=== PATIENT | female | born 1940 | race Caucasian/White ===

== ENCOUNTER 2019-12-06 16:47 | Emergency (ER) | payer MEDICARE, SELFPAY ==
--- NOTE | ~2019-12-06 | CT_ITS ---
EXAMINATION: CT brain wo con DATE: 12/06/2019 22:25 INDICATION: Dizziness TECHNIQUE: Computed tomography (CT) of the head was performed without intravenous contrast. Sagittal and coronal reconstructions were performed. The mA was adjusted according to patient size. Iterative reconstruction technique was employed. The dose-length product was 605.33 mGy-cm. COMPARISON: head CT dated 01/05/2018 FINDINGS: No acute intracranial hemorrhage, acute infarction or abnormal extra axial fluid collection. There is mild scattered white matter hypoattenuation consistent with chronic small vessel ischemic disease. S ymmetric prominence of the sulci consistent with mild age-appropriate diffuse cerebral volume loss. V entricles are normal and symmetric. No mass/mass effect. Changes of bilateral intraocular lens replac ement. Unchanged mucous retention cyst in the posterior most left ethmoid air cell. The orbits and ma stoid air cells are normal. Intracranial calcified cerebral atherosclerosis is noted. IMPRESSION: 1. No acute intracranial process. 2. Age-related changes including mild diffuse volume loss and mild scattered white matter hypoattenua tion consistent with chronic small vessel ischemic disease. Reviewed, dictated and finalized at location A. MATIC CLIPPER IMPRESSION: 1. No acute intracranial process. 2. Age-related changes including mild diffuse volume loss and mild scattered wh ite matter hypoattenuation consistent with chronic small vessel ischemic diseas e.
[2019-12-06 17:31] VITALS: BP 170/58; PULSE 67; RESP 18; TEMP 36.5; O2SAT 100
--- NOTE | 2019-12-06 20:00 | ED.DIZZY ---
HPI - Dizziness General Chief Complaint: Headache Stated Complaint: high blood pressure, headache, dizzy Time Seen by Provider: 12/06/19 19:43 Source: patient and RN notes reviewed Mode of arrival: ambulatory Limitations: no limitations History of Present Illness HPI Narrative: A 79 y/o female presents to the ED d/t constant, worsening, lightheadedness since yesterday. She states that she has been lightheaded and has had a pressure like SALTER since yesterday, so she took her BP and it was high. She reports that her symptoms continued today and that her systolic pressure was in the 170's, so she decided to come to the ED. She notes that her lightheadedness is aggravated when she turns her head. She also notes that she is on Losartan and Carvedilol and denies missing any dosages. She also denies any N/V/D, syncope, ABD pain, CP, SOB, and any other medical complaints at this time. MD elicited complaint: lightheadedness Onset (ago): day(s) (yesterday) Timing: constant (worsening) Description: lightheadedness Exacerbating factors: other (turning head) Relieving factors: nothing Associated symptoms: other (SALTER and HTN) Related Data Home Medications Medication Instructions Recorded Confirmed alprazolam 12/06/19 Allergies Allergy/AdvReac Type Severity Reaction Status Date / Time ciprofloxacin Allergy Unknown Rash Verified 12/06/19 20:12 dicyclomine Allergy Unknown Rash Verified 12/06/19 20:12 latex Allergy Unknown Rash Verified 12/06/19 20:12 Sulfa (Sulfonamide Allergy Unknown Rash Verified 12/06/19 20:12 Antibiotics) MULIPLE PROBLEMS WITH Allergy Unknown DIARRHEA Uncoded 12/06/19 20:12 ANTIBIOTICS Review of Systems Review of Systems: All systems reviewed & are unremarkable except as noted in HPI and below Constitutional: Constitutional: Denies chills, Denies fever(s) and Denies weakness Eyes: Eyes: Denies blurry vision ENT: Denies neck pain Cardiovascular: Cardiovascular: Denies chest pain, Reports lightheadedness, Denies dyspnea and Reports other (HTN) Respiratory: Respiratory: Denies cough and Denies dyspnea Gastrointestinal: Gastrointestinal: Denies abdominal pain, Denies diarrhea, Denies nausea and Denies vomiting Genitourinary: Genitourinary: Denies hematuria and Denies dysuria Musculoskeletal: Musculoskeletal: Denies back pain and Denies neck pain Neurologic: Denies syncope, Reports headache(s) (pressure) and Denies weakness [facility] Past Medical History Medical History (Updated 12/07/19 @ 00:00 by Andrez Salomon) Cervical vertebral closed fracture Cystocele H/O: HTN (hypertension) Hx of seizure disorder OA (osteoarthritis) Surgical History Surgical History (Updated 12/06/19 @ 20:31 by Jayson Villarreal) Surgical history unknown Social History Social History (Updated 12/06/19 @ 20:32 by Jayson Villarreal) Smoking status: Former smoker Gender identity (if verbalized by the patient): Female Comments PCP: Dr. Cat. Exam Const: General: no acute distress and well developed Orientation/consciousness: oriented to person, oriented to place, oriented to time and patient oriented x3 HENMT: Head: normocephalic Ears: external ears normal General nose exam: Normal external nose present Eyes: General: appearance normal, both eyes and all related structures Conjunctivae: conjunctivae normal Neck: Neck: normal visual inspection and full ROM Chest: Chest palpation & inspection: normal inspection of the chest and no tenderness Resp: Effort & Inspection: normal respiratory effort Auscultation: clear to auscultation bilaterally Cardio: Rate: regular rate Rhythm: regular rhythm GI: GI Palp: No abdominal tenderness and Yes Soft to palpation Skin: General skin exam: normal color and turgor normal Neuro: General: oriented to person, oriented to place, oriented to time and patient oriented x3 Cranial nerves: Yes CN's II-XII intact bilaterally Cognition (Neuro): normal cognition Speech: normal s
--- NOTE | 2019-12-06 20:01 | ECG_ITS ---
Measurements Intervals [place] Rate: 61 P: -6 KS: 203 QRS: 8 QRSD: 89 T: 30 QT: 376 QTc: 381 Interpretive Statements SINUS RHYTHM NORMAL ECG Electronically Signed On 12-07-2019 7:25:21 CHECKER CASHIER by Eh Mojica D.O.
[2019-12-06 20:03] VITALS: BP 159/77; PULSE 67; RESP 15; O2SAT 100
[2019-12-06 20:19] LABS: Basophils Absolute Auto 0.1 K/mm3 (0.0-0.1); Eosinophils Absolute Auto 0.2 K/mm3 (0-0.3); Eosinophils Percent Auto 3.1 % (0-4.4); Hematocrit 34.4 % (37.0-47.0); Hemoglobin 11.2 g/dL (12.0-15.0); Immature Granulocyte Absolute 0.02 K/mm3 (0.00-0.031); Immature Granulocyte Percent A 0.3 % (0-0.5); Lymphocytes Absolute Auto 1.69 K/mm3 (0.9-3.2); Lymphocytes Percent Auto 24.6 % (18.3-44.2); Mean Corpuscular HGB Conc 32.6 g/dl (32-36); Mean Corpuscular Hemoglobin 28.7 pg (26-34); Mean Corpuscular Volume 88.2 fl (80-100); Monocytes Absolute Auto 0.7 K/mm3 (0.1-0.6); Neutrophils Absolute Auto 4.2 K/mm3 (1.3-6.7); Platelet Count Result 440 k/mm3 (150-375); Red Cell Distribution Width 12.6 % (11.5-14.5); White Blood Count 6.9 K/mm3 (4.5-10.0)
[2019-12-06 20:31] LABS: Blood Urea Nitrogen 16 mg/dL (7-17); Calcium 9.5 mg/dL (8.4-10.2); Carbon Dioxide 25 mmol/L (22-30); Chloride 96 mmol/L (98-107); Estimated CRCL calculation 87 ml/min; Estimated Glomerular Filt Rate > 60; Glucose 106 mg/dL (65-105); Potassium 4.8 mmol/L (3.4-5.0); Sodium 134 mmol/L (137-145)
[2019-12-06 21:52] VITALS: BP 144/56; PULSE 65; RESP 12; O2SAT 100
[2019-12-06 23:20] VITALS: BP 172/61; PULSE 66; RESP 18; O2SAT 100
[2019-12-06] MEDS: AMLODIPINE BESYLATE 5 MG TABLET PO (23:20)
== END 2019-12-06 23:20 | disposition home or self-care (01) ==
PROVIDERS: Emergency Provider Emergency Medicine
DX: I10 Essential (primary) hypertension (principal); R42 Dizziness and giddiness; Z87.891 Personal history of nicotine dependence; G40.909 Epilepsy, unspecified, not intractable, without status epilepticus
CPT/HCPCS: 36415; 70450; 80048; 85025; 93005; 99284; A9270

== ENCOUNTER 2021-07-12 12:43 | Outpatient (CLI) | payer MEDICARE, SELFPAY ==
--- NOTE | ~2021-07-12 | DEXA_ITS ---
Bone Density Report Name: Oliva White Age: 81 Sex: Female Ethnicity: White Date of : 1940 Indication: postmenopausal; Referring Provider: Katerin Cat Study: Bone densitometry was performed. Exam Date: July 12, 2021 Accession number: [id number] Bone Density: Region BMD T-score Z-score Classification AP Spine (L1, L2, L3) 0.947 -0.6 1.9 Normal Femoral Neck (Left) 0.680 -1.5 0.7 Osteopenia Total Hip (Left) 0.793 -1.2 0.8 Osteopenia Total Hip Bilateral Avg 0.778 -1.4 0.7 Osteopenia Femoral Neck (Right) 0.627 -2.0 0.3 Osteopenia Total Hip (Right) 0.763 -1.5 0.5 Osteopenia World Health Organization criteria for BMD impression classify patients as: Normal (T-score at or above -1.0), Osteopenia (T-score between -1.0 and -2.5), or Osteoporosis (T-score at or below -2.5). 10-year Fracture Risk(1): Major Osteoporotic Fracture 14% Hip Fracture 3.8% Reported Risk Factors: [place] (), Neck BMD=0.627, BMI=33.3 (1) FRAX(R) Version 3.08. Fracture probability calculated for an untreated patient. Fracture probability may be lower if the patient has received treatment. Clinical Information Provided by Patient: Has used the following medications: Vitamin D Patient maximum height was 63 Menopause Age: 61 Drinks caffeinated beverages Onset of menses at age 16 Number of children 3 Impression: The patient has low bone mass, based on the Right Femoral Neck T-score. The patient has an estimated ten-year risk of hip fracture of 3.8% and an estimated ten-year risk of major fracture of 14%, based on the WHO FRAX algorithm. Discussion: BONE DENSITY IS LOW AT ONE OR MORE SKELETAL SITES. THE PATIENT'S BMD AND CLINICAL RISK FACTORS CONTRIBUTE TO THIS PATIENT'S INCREASED RISK OF FRACTURE. This patient's lowest T-score is low at one or more skeletal sites. It meets the World Health Organization's (WHO) criteria for ?low bone mass? (T-score between -1.0 and -2.5). The patient's 10-year risk of hip fracture as calculated by FRAX exceeds the threshold where pharmacological therapy is recommended by the National Osteoporosis Foundation (NOF). However, all treatment decisions require clinical judgment and consideration of individual patient factors, including patient preferences, comorbidities, previous drug use, risk factors not captured in the FRAX model (e.g., frailty, falls, vitamin D deficiency, increased bone turnover, interval significant decline in bone density) and possible under or overestimation of fracture risk by FRAX. The patient should follow a healthful lifestyle (good nutrition with adequate calcium and vitamin D, and appropriate weight-bearing exercise). Follow-Up: Consider a repeat BMD and Vertebral Fracture Assessment (VFA) exam in 2 years or sooner if medically necessary, to reassess this pat
== END 2021-07-12 12:44 | disposition home or self-care (01) ==
LOC: ANHIMG 12:46
DX: Z78.0 Asymptomatic menopausal state (principal); M85.89 Other specified disorders of bone density and structure, multiple sites
CPT/HCPCS: 77080

== ENCOUNTER → 2022-11-24 10:15 | Outpatient (CLI) | payer MEDICARE, SELFPAY ==
--- NOTE | ~2022-11-24 | US_ITS ---
Abdominal Sonogram: Real-time sonographic imaging of the abdomen was performed. Clinical History: Abnormal findings of blood Findings: The liver appears normal with no evidence of mass lesion or bile duct dilatation. Main por rosina vein demonstrates normal direction of flow. The spleen is normal in size without evidence of foca l lesion. The gallbladder is well distended, and appears normal with no evidence of gallstone or wal l thickening. The common bile duct measures 4 mm. The visualized pancreas, aorta, and IVC are unrema rkable. The right kidney measures 8.9 cm in length and the left kidney measures 7.8 cm. There is no hydronephrosis or renal calculus. Impression: Unremarkable abdominal ultrasound. Reviewed, dictated and finalized at location . TRUCK DRIVER Impression: Unremarkable abdominal ultrasound.
== END ==
PROVIDERS: PCP Internal Medicine Rheumatology; Visit Provider Internal Medicine Rheumatology
DX: R79.89 Other specified abnormal findings of blood chemistry (principal)
CPT/HCPCS: 76700

== ENCOUNTER 2023-08-14 16:31 | Outpatient (CLI) | payer MEDICARE, SELFPAY ==
--- NOTE | ~2023-08-14 | MR_ITS ---
EXAMINATION: MR brain/brain stem wo/w con DATE: 08/14/2023 17:50 INDICATION: Hearing loss. TECHNIQUE: Magnetic resonance imaging (MRI) of the brain and brainstem was performed without and with 20 mL MultiHance intravenous contrast. COMPARISON: Head CT 12/06/2019 FINDINGS: There are scattered areas of nonspecific increased T2-weighted signal intensity in the cere bral white matter, which is within normal limits for the patient's age. There is no intracranial hemo rrhage, acute infarction, or abnormal intracranial mass lesion. The ventricles are normal in size. Th ere is mild mucosal thickening in the paranasal sinuses. The internal auditory canals and inner ears and tympanic cavities are normal. There is a right mastoid effusion. There are likely changes of ocul ar lens replacement surgeries. IMPRESSION: 1. Normal aging brain. 2. Right mastoid effusion. Reviewed, dictated and finalized at location E.
== END 2023-08-14 16:32 | disposition home or self-care (01) ==
PROVIDERS: PCP Internal Medicine Rheumatology
DX: H74.8X1 Other specified disorders of right middle ear and mastoid (principal)
CPT/HCPCS: 70553; A9577

== ENCOUNTER 2025-01-01 15:56 | Outpatient (CLI) | payer MEDICARE, SELFPAY ==
--- NOTE | ~2025-01-01 | DEXA_ITS ---
Bone Density Report Name: MAK LUONG Age: 84 Sex: Female Ethnicity: White Date of : 1940 Indication: osteopenia; height loss; seizure disorder; hysterectomy; Referring Provider: JONATHAN, RICO Connor Study: Bone densitometry was performed. Exam Date: January 01, 2025 Accession number: [id number] Bone Density: Region BMD T-score Z-score Classification AP Spine(L1-L4) 0.974 -0.7 2.1 Normal Femoral Neck (Left) 0.718 -1.2 1.2 Osteopenia Total Hip (Left) 0.791 -1.2 1.0 Osteopenia Femoral Neck (Right) 0.695 -1.4 1.0 Osteopenia Total Hip (Right) 0.751 -1.6 0.6 Osteopenia Total Hip Mean 0.771 -1.4 0.8 Osteopenia World Health Organization criteria for BMD impression classify patients as: Normal (T-score at or above -1.0), Osteopenia (T-score between -1.0 and -2.5), or Osteoporosis (T-score at or below -2.5). 10-year Fracture Risk(1): Major Osteoporotic Fracture 12% Hip Fracture 3.0% Reported Risk Factors: [place] (), Neck BMD=0.695, BMI=33.3 (1) FRAX(R) Version 3.08. Fracture probability calculated for an untreated patient. Fracture probability may be lower if the patient has received treatment. Previous Exams: Region Exam Age BMD T-score BMD Change BMD Change Date g/cm2 vs Baseline vs Previous Total Hip(Left) 01/01/2025 84 0.791 -1.2 -0.002 (-0.3%) -0.002 (-0.3%) 07/12/2021 81 0.793 -1.2 Total Hip(Right) 01/01/2025 84 0.751 -1.6 -0.012 (-1.6%) -0.012 (-1.6%) 07/12/2021 81 0.763 -1.5 *Denotes significance at 95% confidence level, LSC for Total Hip = 0.027 g/cm2 # Denotes dissimilar scan types or analysis methods Clinical Information Provided by Patient: Has used the following medications: Vitamin D, Calcium Has the following medical conditions: Any Seizure Disorders, Hysterectomy Patient maximum height was 64.5 Menopause Age: 61 No regular weight bearing exercise Drinks caffeinated beverages Onset of menses at age 16 Number of children 3 Impression: The patient has low bone mass, based on the Right Total Hip T-score. The patient has an estimated ten-year risk of hip fracture of 3% and an estimated ten-year risk of major fracture of 12%, based on the WHO FRAX algorithm. No significant bone loss was observed. Discussion: BONE DENSITY IS LOW AT ONE OR MORE SKELETAL SITES. THE PATIENT'S BMD AND CLINICAL RISK FACTORS CONTRIBUTE TO THIS PATIENT'S INCREASED RISK OF FRACTURE. This patient's lowest T-score is low at one or more skeletal sites. It meets the World Health Organization's (WHO) criteria for ?low bone mass? (T-score between -1.0 and -2.5). The patient's 10-year risk of hip fracture as calculated by FRAX exceeds the threshold where pharmacological therapy is recommended by the National Osteoporosis Foundation (NOF). However, all treatment decisions require clinical judgment and consideration of individual patient factors, including patient preferences, comorbidities, previous drug use, risk factors not captured in the FRAX model (e.g., frailty, falls, vitamin D deficiency, increased bone turnover, interval significant decline in bone density) and possible under or overestimation of fracture risk by FRAX. The patient should follow a healthful lifestyle (good nutrition with adequate calcium and vitamin D, and appropriate weight-bearing exercise). Follow-Up: Consider a repeat BMD and Vertebral Fracture Assessment (VFA) exam in 2 years or sooner if medically necessary, to reassess this patient's status. Reported by: NAZIA on 01/01/2025 4:23:00 PM. Reviewed, dictated and finalized at location ABecky LEONG
--- OUTSIDE RECORDS SUMMARY | 2025-01-01 17:26 | XMS_ITS | Encounter Summary ---
Author Organization [facility] Healthcare Address [address] [place] [address] Care Team Providers Care Sweatband Maker Name Role Phone Katerin Cat MD Primary Care Provider [phone] Reason for Visit * Reason Onset Date Comments Scheduling Appointments 06/17/2024 Schedule patient for Imaging Lumbar/Sacral Medial Branch RFA Bilateral (05002) Encounter Details Date Type Department Care Team (Late st Contact Info) Description 06/17/2024 Telephone [facility] at [facility] [address] [address], [address] [place] [id number] Bashir Yusuf MD [address] [place] [address] Scheduling Appointments (Schedule patient for Imaging Lumbar/Sacral Medial Branch RFA Bilateral (26843) ) Social History Tobacco Use Types Packs/Day Years Used Date Smoking Tobacco: Never Smokeless Tobacco: Never Alcohol Use Standard Drinks/Week Comments Never 0 (1 standard drink = 0.6 oz pur e alcohol) AUDIT-C Answer Date Recorded Q1: How often do you have a drink containing alc ohol? 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 Author CCM Chronic Pain Care Plan Chronic Care Management No Viv Cardenas, RN Note: Problem: Chronic Pain Goals: 1. Minimize further functional decline 2. Maximize quality of life 3. Control pain Strategies: - Activity/exercise program recommendation - Conservative stepwise pain medicine strategy with multi-disciplinary approach - Recommend healthy lifestyle strategies and compensatory methods as needed Reduce the likelihood of falling Lifestyle No Woodrow benavides, Isabell Jaquez RN Note: Below are four things you can do to prevent falls: Begin an exercise program to improve your leg strength & balance Ask your doctor or pharmacist to review your medicines Get annual eye check-ups & update your eyeglasses Make your home safer by: Removing clutter & tripping hazards Putting railings on all stairs & adding grab bars in the bathroom Having good lighting, especially on stairs Contact your local community or [facility] for information on exercise, fall prevention programs, or options for improving home safety. documented as of this encounter Visit Diagnoses Not on filedocumented in this encounter Care Teams Sweatband Maker Relationship Specialty Start Date End Date Katerin Cat MD [address] [place] [address] [place] [address] PCP - General 05/26/17 documented as of this encounter
--- OUTSIDE RECORDS SUMMARY | 2025-01-01 17:26 | XMS_ITS | Encounter Summary ---
Author Organization [facility] Healthcare Address [address] [place] [address] Care Team Providers Care Hospice Educator Name Role Phone Katerin Cat MD Primary Care Provider [phone] Encounter Details Date Type Department Care Team (Late st Contact Info) Description 05/05/2020 Telephone [facility] at [facility] [address], [address] [place] [id number] Sophy Fuentes MD [address] [place], [place] [id number] Social History Tobacco Use Types Packs/Day Years Used Date Smoking Tobacco: Never Smokeless Tobacco: Never Alcohol Use Standard Drinks/Week Comments Never 0 (1 standard drink = 0.6 oz pur e alcohol) AUDIT-C Answer Date Recorded Frequency of Alcohol Consumption Never 11/25/2019 Average Number of Drinks Not on file 020 Frequency of Binge Drinking Not on file 10/31 Comments No Sex and Gender Information Value Date Recorded Sex Assigned at Not on file 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 [facility] [address] [facility] [address] PCP - General 05/26/17 documented as of this encounter
--- OUTSIDE RECORDS SUMMARY | 2025-01-01 17:26 | XMS_ITS | Encounter Summary ---
Author Organization [facility] Address [address] [place] [address] Care Team Providers Care Mechanical Artist Name Role Phone Unavailable Primary Care Provider Unavailabl e Encounter Details Date Type Department Care Team (Late st Contact Info) Description 07/14/2000 Outpatient Historical [facility] Katerin Cat MD Social History Tobacco Use Types Packs/Day Years Used Date Smoking Tobacco: Never Assessed Comments Unknown Sex and Gender Information Value Date Recorded Sex Assigned at Not on file Legal Sex Female 4:18 AM CLINICAL RESEARCH ADMINISTRATOR Gender Identity Not on file Sexual Orientation Not on file documented as of this encounter Plan of Treatment Not on file documented as of this encounter Visit Diagnoses Not on filedocumented in this encounter
--- OUTSIDE RECORDS SUMMARY | 2025-01-01 17:26 | XMS_ITS | Clinical Summary ---
Author Organization [facility] Address [address] [place] [address] Care Team Providers Care Senior Training Specialist Name Role Phone Katerin Cat MD Primary Care Provider [phone] Allergies Active Allergy Reactions Criticality Noted Date Comments Cefuroxime Swelling,Redness Medium Dicyclomine Unknown 06/16/2014 Pt does not remember Iodinated Contrast Media Flushing (skin) High 2020 Latex Rash Medium Nitrofurantoin Swelling,Redness Medium Medications carvedilol (COREG) 6.25 mg tablet Take 1 tablet (6.25 mg total) by mouth 2 (two) times a day 3 8 Active losartan (COZAAR) 100 mg tablet Take 1 tablet (100 mg total) by mouth every morning Active furosemide (LASIX) 20 mg tablet Take 2 tablets (40 mg total) by mouth every morning 3 8 Active PHENobarbital (LUMINAL) 32.4 mg tabletIndicatio ns:seizure disorder Take 1 tablet (32.4 mg total) by mouth nightly 4 8 Active potassium chloride ER (KLOR-CON) 10 mEq CR tablet Take 1 tablet/capsule (10 mEq total) by mouth nightly Active lancets misc Use every time you check your blood sugar 50 each 3 1 Active blood glucose strip-disp meter kit 1 kit 4 (four) times a day (with meals and nightly) 1 kit 1 Active blood-glucose meter kit 1 kit 4 (four) times a day (with meals and nightly) 1 each 1 Active amLODIPine (NORVASC) 5 mg tablet Take 1 tablet (5 mg total) by mouth daily after dinner 1 Active estradioL (Estrace) 0.01 % (0.1 mg/gram) vaginal creamIndication s:Vaginal atrophy Apply 1/4 applicator (1g) to the vagina twice weekly. 42.5 g 3 1 Active d-mannose powder Take 1,000 mg by mouth 2 (two) times a day Active cyanocobalamin (Vitamin B-12) 500 mcg tabletIndicatio ns:Prevention of Vitamin B12 Deficiency Take 1 tablet (500 mcg total) by mouth nightly Active acetaminophen (TYLENOL) 500 mg tablet Take 1 tablet (500 mg total) by mouth every 6 (six) hours as needed for pain Active calcium carbonate (TUMS) 500 mg calcium (200 mg of elemental calcium) chewable tablet Take 1 tablet/chew tab (500 mg total) by mouth as needed for indigestion or heartburn Active traMADoL (ULTRAM) 50 mg tablet Take 1 tablet (50 mg total) by mouth every 6 (six) hours as needed for pain 20 tablet 1 Active aspirin 81 mg chewable tablet Take 1 tablet (81 mg total) by mouth daily Active vitamins A,C,E-zinc-chelsie er 7,160-113-100 lega-lc-evde tablet,delayed release (DR/EC) Take by mouth Active multivitamin tabletIndicatio ns:Vitamin Deficiency Prevention Take 1 tablet by mouth Active ALPRAZolam (XANAX) 0.25 mg tablet Take 1 tablet (0.25 mg total) by mouth 3 (three) times a day 4 Active Active Problems Problem Noted Date Diagnosed Date Spondylosis of lumbar region without myelopathy or radiculopathy 07/27/2024 Sacroiliitis 05/30/2024 Vaginal atrophy 03/16/2021 Assessment & Plan (07/07/2021 11:19 AM CDT): - continue twice weekly VET Pelvic floor dysfunction in female 03/16/2021 Uterovaginal prolapse, incomplete 03/16/2021 Assessment & Plan (07/07/2021 11:18 AM CDT): - 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 Hernandez on 08/12; however, her grandson is going into the [employer] and his going away green party is 08/13. We discussed her recovery may or may not impact her ability to attend this. She will consider and call the office if she desires to d/w Dr. Hernandez further via telehealth or reschedule to a different date. Of note, she is scheduled for preop appt and UDS on 08/10. - she will return for pessary check in 3 months if surgery not done before then Incomplete emptying of bladder 03/16/2021 Assessment & Plan (08/18/2021 5:39 PM CDT): - Trevino catheter inserted today to allow for bladder rest. - she will return in approximately one week for void trial Prolapse of anterior vaginal wall 02/08/2018 Frequent urination 02/07/2018 Assessment & Plan (07/07/2021 11:11 AM CDT): - normal PVR today - A cathed urine culture is being sent today to rule out a UTI as a possible cause of her symptoms. Vaginal irritation 02/07/2018 Skin neoplasm 08/16/2017 Seborrheic keratosis 08/12/2016 Seborrheic keratosis, inflamed 12/14/2015 Knee pain 09/30/2015 Actinic keratosis 08/07/2015 Lentigo 08/07/2015 Closed fracture of second ce rvical vertebra without spinal cord injury 11/25/2014 Cervicalgia 11/07/2014 History of squamous cell carcinoma of skin 06/17 Sacroiliac joint pain 04/04/2014 Lumbago 03/15/2013 Low back pain 04/18/2012 Assessment & Plan (08/18/2021 5:38 PM CDT): - minimal relief with tramadol and ibuprofen - called pain management doctor and they have scheduled her an appointment - chart review following appointment reveals she has appt with them tomorrow morning. Encounters Date Type Department Care Team Description 12/10/2024 1:00 PM SOFT METALS HAND ENGRAVER Office Visit [facility] D[facility]atology [address] [facility] [address] [place] [address] Daljit Chavez MD Seborrheic keratosis (Primary Dx); History of nonmelanoma skin cancer; Multiple benign nevi; Lentigo from Last 3 Months Surgical History Surgery Date Site/Laterality Comments EPIDURAL INJECTION LUMBOSACRAL 10/16/2013 N/A EPIDURAL INJECTION LUMBOSACRAL 09/16/2016 N/A BASAL CELL CARCINOMA EXCISION LEG SURGERY BACK SURGERY ablatioin-stenosis IR INJECTION ARTHROGRAM SI J OINT BILATERAL WITH GUIDANCE 07/31/2018 Bilateral FLUORO GUIDED INJECTION SHOU LDER RIGHT 12/19/2018 Right IR INJECTION ARTHROGRAM SI J OINT BILATERAL WITH GUIDANCE 05/27/2019 Bilateral FL UPPER GI AIR CONTRAST W KUB 07/29/2019 Left FLUORO GUIDED ASPIRATION OR INJECTION LARGE JOINT BILATERAL 09/11/2019 Bilateral COLECTOMY PARTIAL / TOTAL ANTERIOR AND POSTERIOR VAGINAL REPAIR ENTEROCELE REPAIR HYSTERECTOMY 08/12/2021 HYSTERECTOMY BLADDER SUSPENSION ANTERIOR AND POSTERIOR VAGINAL REPAIR Medical History Medical History Date Comments Neck fracture (HCC) Anxiety Arthritis Cancer (HCC) basal cell leg a nd face Hypertension Seizures (HCC) Tail bone pain Incontinence Joint pain Diabetes (HCC) Motion sickness GERD (gastroesophageal reflux disease) Skin cancer Macular degeneration Obesity Chronic pain disorder Low back pain Family History Medical History Relation Name Comments BLOOD CANCER Father Cancer Father Hypertension Father Cancer Mother Other Mother Diabetes Son Anesthesia problems Neg Hx Relation Name Status Comments Father Mother Son Social History Tobacco Use Types Packs/Day Years Used Date Smoking Tobacco: Never Smokeless Tobacco: Never Tobacco Cessation:Counseling Given: Not Answered Alcohol Use Standard Drinks/Week Comments Never 0 (1 standard drink = 0.6 oz pur e alcohol) AUDIT-C Answer Date Recorded Q1: How often do you have a drink containing alcohol? Never 07/26/2024 Q2: How many drinks containi ng alcohol do you have on a typical day when you are drinking? Patient does not drink Q3: How often do you have si x or more drinks on one occasion? Never 07/26/2024 Comments No Sex and Gender Information Value Date Recorded Sex Assigned at Not on file Legal Sex Female 9:12 AM SOFT METALS HAND ENGRAVER Gender Identity Not on file Sexual Orientation Not on file Occupation Industry Job Start Date Job End Date Retired Not on file Not on file Not on file Obstetrics History Para Term AB IAB SAB Ectopic Multiple Livin g Live Births 3 3 3 3 3 Date Outcome GA Total Labor Labor/2nd/3rd Weight Sex Type Anes PTL Tila A1 A5 Name Clin 1968 Term 3.856 kg (8 lb 8 oz) F Vag-S pont N Living Complications:None 1971 Term 3.771 kg (8 lb 5 oz) M Vag-S pont N Living Complications:None 1975 Term 3.941 kg (8 lb 11 oz) M Vag-S pont N Living Complications:None Last Filed Vital Signs Vital Sign Reading Time Taken Comments Blood Pressure 142/65 08/27/2024 10:29 AM CDT Pulse 67 08/27/2024 10:29 AM CDT Temperature 35.5 C (95.9 F) 08/27/2024 10:29 AM CDT Respiratory Rate 16 08/27/2024 10:29 AM CDT Oxygen Saturation 99% 08/27/2024 10:29 AM CDT Inhaled Oxygen Concentration - - Weight 81.6 kg (180 lb) 08/27/2024 10:29 AM CDT Height 160 cm (5' 3 ) 08/27/2024 10:29 AM CDT Body Mass Index 31.89 08/27/2024 10:29 AM CDT Plan of Treatment Health Maintenance Due Date Last Done Comments Depression Screening 1940 Osteoporosis Screening-Bone Density Scan 1942 DTaP/Tdap/Td Vaccine (1 - Tdap) 1953 Hepatitis B Screening 1960 Well Visit 65+ 2007 Covid-19 Vaccine (5 - 2023-2 5 season) 2024 09/17/2021, 01/12/2021, 12/10/2020, Additional history exists Fall Risk Assessment 08/27/2025 08/27/2024, 07/26/2024, 05/30/2024, Additional history exists Zoster Vaccine Completed 02/14/2019, 10/2018, 04/01/2015 Pneumococcal vaccine 65+ Completed 019, 03/30/2019, 09/05/2016 Influenza Vaccine Completed 08/31/2024, , 10/12/2021, Additional history exists Goals Goal Patient Goal Type Associated Problems Recent Progress Patient-Stated? Author CCM Chronic Pain Care Plan Chronic Care Management No Viv Cardenas, BO Note: Problem: Chronic Pain Goals: 1. Minimize further functional decline 2. Maximize quality of life 3. Control pain Strategies: - Activity/exercise program recommendation - Conservative stepwise pain medicine strategy with multi-disciplinary approach - Recommend healthy lifestyle strategies and compensatory methods as needed Reduce the likelihood of falling Lifestyle No Isabell Riley RN Note: Below are four things you [...] on stairs Contact your local community or [facility] for information on exercise, fall prevention programs, or options for improving home safety. Medical Devices Implanted Type Area Sheep Farm Worker Device Identifier Shelf Expiration Date Model / Serial / Lot [employer] [id number] Tvt Prolene 45x1.1cm Tape Mesh Transvaginal Blue - [id number] Implanted:Qty: 1 on 08/12/2021 by Faustina Hernandez MD at [facility] Mesh N/A: Pelvis [employer] [facility] [id number] 07/29/2022 [id number] / / [id number] Insurance AETNA MEDICARE [facility] MEDICARE AETNA [facility] AETNA MEDICARE Advance Directives For more information, please contact: [phone] * Full Code (Latest Code Status on File) Date Activated Date Inactivated Comments 08/12/2021 6:29 PM 08/14/2021 6:25 PM * Full Code Date Activated Date Inactivated Comments 02/13/2021 6:36 PM 02/15/2021 1:50 PM * Full Code Date Activated Date Inactivated Comments 05/27/2019 10:30 AM 05/28/2019 4:36 AM * Full Code Date Activated Date Inactivated Comments 07/31/2018 11:52 AM 07/31/2018 2:09 PM Care Teams Senior Training Specialist Relationship Specialty Start Date End Date Katerin Cat MD [address] [place] [address] [address] [facility] [address] PCP - General 05/26/17
--- OUTSIDE RECORDS SUMMARY | 2025-01-01 17:26 | XMS_ITS | Encounter Summary ---
Author Organization [facility] Address [address] [place] [address] Care Team Providers Care Pewter Fabricator Name Role Phone Katerin Cat MD Primary Care Provider [phone] Reason for Visit * Reason Onset Date Comments Scheduling Appointments 08/28/2024 Schedule patient for Imaging SI Joint Injection Left (51054) Encounter Details Date Type Department Care Team (Late st Contact Info) Description 08/28/2024 Telephone [facility] Management Center at [facility] [address] [address], [address] [place] [phone] Bashir Yusuf MD [address] [place] [address] Scheduling Appointments (Schedule patient for Imaging SI Joint Injection Left (30464) ) Social History Tobacco Use Types Packs/Day [...] on file Legal Sex Female 9:12 AM LEAD SYSTEMS DEVELOPER Gender Identity Not on file Sexual Orientation [...] on stairs Contact your local community or [facility] for information on exercise, fall prevention programs, or options for improving home safety. documented as of this encounter Visit Diagnoses Not on filedocumented in this encounter Care Teams Pewter Fabricator Relationship Specialty Start Date End Date Katerin Cat MD [address] [place] [address] [place] [address] PCP - General 05/26/17 documented as of this encounter
--- OUTSIDE RECORDS SUMMARY | 2025-01-01 17:26 | XMS_ITS | Encounter Summary ---
Author Organization [facility] Address [address] [place] [address] Care Team Providers Care Director Park Name Role Phone Katerin Cat MD Primary Care Provider [phone] Encounter Details Date Type Department Care Team (Late st Contact Info) Description 09/15/2022 Telephone Pain Management Center at [facility] [address] [facility] [address], [address] [place] [phone] Sophy Fuentes MD [address] [facility] [address] [place] [address] Social History Tobacco Use Types Packs/Day Years Used Date Smoking Tobacco: Never Smokeless Tobacco: Never Alcohol Use Standard Drinks/Week Comments Never 0 (1 standard drink = 0.6 oz pur e alcohol) AUDIT-C Answer Date Recorded Q1: How often do you have a drink containing alc ohol? Never 08/25/2022 Average Number of Drinks Not on file 022 Q3: How often do you have si x or more drinks on one occasion? Never 08/25/2022 Comments No Sex and Gender Information Value Date Recorded Sex Assigned at Not on file Legal Sex Female 9:12 AM DIRECTOR OF GRADUATE MEDICAL EDUCATION Gender Identity Not on file Sexual Orientation [...] needed Reduce the likelihood of falling Lifestyle Jennyfer benavides, Isabell Jaquez RN Note: Below are [...] on stairs Contact your local community or [facility] for information on exercise, fall prevention programs, or options for improving home safety. documented as of this encounter Visit Diagnoses Not on filedocumented in this encounter Care Teams Director Park Relationship Specialty Start Date End Date Katerin Cat MD [address] [place] [address] [place] [address] PCP - General 05/26/17 documented as of this encounter
--- OUTSIDE RECORDS SUMMARY | 2025-01-01 17:26 | XMS_ITS | Referral Summary ---
Author Organization [facility] Address [address] [place] [address] Care Team Providers Care Medical Records Clerk Name Role Phone Katerin Cat MD Primary Care Provider [phone] Encounters Date Type Department Care Team Description 12/10/2024 1:00 PM BASKET TURNER Office Visit [facility] Dermatology [facility] [facility] [address] [place] [address] Daljit Chavez MD Seborrheic keratosis (Primary Dx); History of nonmelanoma skin cancer; Multiple benign nevi; Lentigo from Last 3 Months Allergies Active Allergy Reactions Criticality Noted Date [...] (0.1 mg/gram) vaginal creamIndication s:Vaginal atrophy Apply 11/02 applicator (1g) to the vagina twice weekly. [...] mouth daily Active vitamins A,C,E-zinc-chelsie er 7,160-113-100 qsxw-mk-zncu tablet,delayed release (DR/EC) Take by mouth Active [...] however, her grandson is going into the [employer] and his going away democrat is 08/13. We discussed her recovery may [...] she has appt with them tomorrow morning. Social History Tobacco Use Types Packs/Day Years [...] on file Legal Sex Female 9:12 AM BASKET TURNER Gender Identity Not on file Sexual Orientation Not on file Occupation Industry Job Start Date Job End Date Retired Not on file Not on file Not on file Last Filed Vital Signs Vital Sign Reading [...] 08/27/2024 10:29 AM CDT Plan of Treatment Not on file Goals Goal Patient Goal Type Associated Problems Recent Progress Patient-Stated? Author CCM Chronic Pain Care Plan Chronic Care Management No Viv Cardenas RN Note: Problem: Chronic Pain Goals: 1. [...] on stairs Contact your local community or [facility] for information on exercise, fall prevention programs, or options for improving home safety. Medical Devices Implanted Type Area Plant Engineering Supervisor Device Identifier Shelf Expiration Date Model / Serial / Lot Path 1 [employer] [id number] Tvt Prolene 45x1.1cm Tape Mesh Transvaginal Blue - [id number] Implanted:Qty: 1 on 08/12/2021 by Faustina Hernandez MD at [facility] Mesh N/A: Pelvis [employer] [facility] [id number] 07/29/2022 [id number] / / [id number] Insurance AETNA MEDICARE [facility] AETNA [facility]IC[facility] Advance Directives For more information, please contact: [phone] * Full Code (Latest Code Status on File) Date Activated Date Inactivated Comments 08/12/2021 6:29 PM 08/14/2021 6:25 PM * Full Code Date Activated Date Inactivated Comments 02/13/2021 6:36 PM 02/15/2021 1:50 PM * Full Code Date Activated Date Inactivated Comments 05/27/2019 10:30 AM 05/28/2019 4:36 AM * Full Code Date Activated Date Inactivated Comments 07/31/2018 11:52 AM 07/31/2018 2:09 PM Care Teams Medical Records Clerk Relationship Specialty Start Date End Date Katerin Cat MD [address] [place] [address] PCP - General 05/26/17
--- OUTSIDE RECORDS SUMMARY | 2025-01-01 17:26 | XMS_ITS | Encounter Summary ---
Author Organization [facility] Address [address] [place] [address] Care Team Providers Care Mash Filter Press Operator Name Role Phone Katerin Cat MD Primary Care Provider [phone] Reason for Visit * Reason Onset Date Comments Scheduling Appointments 06/17/2024 Patient called in to reschedule appt Encounter Details Date Type Department Care Team (Late st Contact Info) Description 06/17/2024 Telephone Pain Management Center at [facility] [address] [address], [address] [place] [phone] Bashir Yusuf MD [address] [place] [address] Scheduling Appointments (Patient called in to reschedule appt) Social History Tobacco Use Types Packs/Day Years [...] on file Legal Sex Female 9:12 AM CHAIR INSPECTOR Gender Identity Not on file Sexual Orientation [...] of falling Lifestyle No Woodrow benavides, Isabell Jaquez, BO Note: Below are four things you can [...] on stairs Contact your local community or [facility] for information on exercise, fall prevention programs, or options for improving home safety. documented as of this encounter Visit Diagnoses Not on filedocumented in this encounter Care Teams Mash Filter Press Operator Relationship Specialty Start Date End Date Katerin Cat MD [address] [facility] [address] [address] [place] [address] PCP - General 05/26/17 documented as of this encounter
--- OUTSIDE RECORDS SUMMARY | 2025-01-01 17:26 | XMS_ITS | Encounter Summary ---
Author Organization [facility] Healthcare Address [address] [place] [address] Care Team Providers Care Canal Equipment Maintenance Supervisor Name Role Phone Katerin Cat MD Primary Care Provider [phone] Encounter Details Date Type Department Care Team (Late st Contact Info) Description 05/10/2019 Telephone [facility] Radiology [address] [place] [address] Sowmya Whittington RN Social History Tobacco Use Types Packs/Day Years Used Date Smoking Tobacco: Never Smokeless Tobacco: Never Alcohol Use Standard Drinks/Week Comments No 0 (1 standard drink = 0.6 oz pur e alcohol) Comments No Sex and Gender Information Value Date Recorded Sex Assigned at Not on file Legal Sex Female 9:12 AM TRANSIT COACH OPERATOR Gender Identity Not on file Sexual Orientation Not on file documented as of this encounter Plan of Treatment Not on file documented as of this encounter Visit Diagnoses Not on filedocumented in this encounter Care Teams Canal Equipment Maintenance Supervisor Relationship Specialty Start Date End Date Katerin Cat MD [address] [place] [address] [place] [employer] [address] PCP - General 05/26/17 documented as of this encounter
--- OUTSIDE RECORDS SUMMARY | 2025-01-01 17:26 | XMS_ITS | Clinical Summary ---
Author Organization [facility] Address [address] [place] [address] Care Team Providers Care Health And Safety Inspector Name Role Phone Unavailable Primary Care Provider Unavailabl e Immunizations Immunization Administration Dates Next Due Covid-19, Mrna, Lnp-s, PF, 5 0 mcg/0.25 mL dose (Moderna) 09/17/2021 Social History Tobacco Use Types Packs/Day Years Used Date Smoking Tobacco: Never Assessed Comments Unknown Sex and Gender Information Value Date Recorded Sex Assigned at Not on file Legal Sex Female 10:14 AM SHEET METAL ERECTOR Gender Identity Not on file Sexual Orientation Not on file Plan of Treatment Health Maintenance Due Date Last Done Comments DEXA Bone Density 1940 Hepatitis C Virus (HCV) Screening 1940 TdaP Immunization 1940 Respiratory Syncytial Virus (RSV) Immunization (Adult) (1 - 1-dose 75+ series) 2017 Pneumococcal Immunization (5 0+ years) (2 of 2 - PPSV23) 09/05/2017 09/05/2016 Zoster Immunization (2 of 2) 04/11/2019 02/14/2019 Influenza Immunization (#1) 06/30/202407/31, 11/28/2019, 08/12/2018 SARS-COV-2 Immunization ( season) 2024 09/17/2021, 01/12/2021, 12/10/2020 Hepatitis B Immunization Aged Out No longer eligible based on patient's age to complete this topic Meningococcal Immunization (ACWY) Aged Out No longer eligible b ased on patient's age to complete this topic Rotavirus Immunization Aged Out No lo nger eligible based on patient's age to complete this topic
--- OUTSIDE RECORDS SUMMARY | 2025-01-01 17:26 | XMS_ITS | Continuity of Care Document ---
Author Organization [facility] Address [address] [place] [address] [place] [address] Phone Care Team Providers Care Business Process Coordinator Name Role Phone [facility] Unavailable Unavail able Sicksoniya, Danna Unavailable Unavailable Advance Directives Directive Yes / No Effective Date File Name No Information Encounters Encounter Description Practice Location Reason(s) For Visit Diagnoses Date Provider Providers Copied on Encounter [facility], [address], [place], [place], [id number], [place] tel:[phone] [facility] No Information [facility] [address] [facility], [address], [place], [place], [id number] , [place]. [phone] Referring Provider: Kei Mazariegos, [address] [place] [address], [address]. tel:[phone] Provider: Danna Landis, [address] [place], [address]. tel:[phone] Family History Family Member Type Diagnosis Age At Onset No Information Payers Payer name Insurance type Covered libertarian ID Authoriza tion(s) [employer] Plan CI [id number] Social History Type Description Quantity Date Captured Comments Sex Female Smoking Status No Information Chief Complaint And Reason For Visit No Information Reason For Referral Reason For Referral No Information History Of Present Illness Encounter Date Complaint History Of Prese nt Illness No Information Functional Status Date Functional Assessmen t No Information Instructions Date Instruction Additional Infor mation No Information Assessments Type Assessment Date No Information Patient Care Teams Name Effective Dates (start - stop) Status Members No Information
--- OUTSIDE RECORDS SUMMARY | 2025-01-01 17:26 | XMS_ITS | Clinical Summary ---
Author Organization [facility] Address [address] Rosen: Epic Prelude ADT KATIA JACOBS MIRZA [address] Care Team Providers Care Torch Heater Name Role Phone Unavailable Primary Care Provider Unavailabl e Social History Tobacco Use Types Packs/Day Years Used Date Smoking Tobacco: Never Assessed Comments Unknown Sex and Gender Information Value Date Recorded Sex Assigned at Not on file Legal Sex Female 4:18 AM SURGICAL ELASTIC KNITTER Gender Identity Not on file Sexual Orientation Not on file Plan of Treatment Health Maintenance Due Date Last Done Comments DTAP/TDAP/TD VACCINES (1 - Tdap) 1961 PNEUMOCOCCAL VACCINE 50+ YEARS (1 of 1 - PCV) 05/12/19 92 ZOSTER VACCINE (1 of 2) 1992 OSTEOPOROSIS SCREENING 2007 RSV VACCINE (60+ or ) (1 - 1-dose 75+ series) 2017 INFLUENZA VACCINE (#1) 2024 Colorectal Cancer Screening Discontinued FIT/FOBT Q 1 year Discontinued 07/14/2000 COLORECTAL SCREENING Discontinued FIT-DNA Q 3 years Discontinued Flex Sig/CT Colonography Q 5 years Discontinued
--- OUTSIDE RECORDS SUMMARY | 2025-01-01 17:26 | XMS_ITS | Encounter Summary ---
[facility] Organization [facility] Address [address] [place] [address] Care Team Providers Care Hydraulic Press In Operator Name Role Phone Unavailable Primary Care Provider Unavailabl e Encounter Details Date Type Department Care Team (Late st Contact Info) Description 03/09/2000 Outpatient Historical [facility] Tommie Robertson Social History Tobacco Use Types Packs/Day Years Used Date Smoking Tobacco: Never Assessed Comments Unknown Sex and Gender Information Value Date Recorded Sex Assigned at Not on file Legal Sex Female 4:18 AM CHANNEL DEVELOPMENT DIRECTOR Gender Identity Not on file Sexual Orientation Not on file documented as of this encounter Plan of Treatment Not on file documented as of this encounter Visit Diagnoses Not on filedocumented in this encounter
== END 2025-01-01 15:57 | disposition home or self-care (01) ==
PROVIDERS: PCP Internal Medicine Rheumatology; Visit Provider Internal Medicine Rheumatology
DX: Z78.0 Asymptomatic menopausal state (principal); M85.852 Other specified disorders of bone density and structure, left thigh; M85.851 Other specified disorders of bone density and structure, right thigh
CPT/HCPCS: 77080